=== PATIENT | female | born 1945 | race Caucasian/White ===

== ENCOUNTER 2021-07-22 19:52 | Emergency (ER) | payer MEDICARE ==
[~2021-07-22] VITALS: Ht 160 cm; Wt 94.4 kg
[2021-07-22 20:25] LABS: BASO # 0.1 x10^3/uL (0.0-0.2); BASO % 1 % (0-3); EOS # 0.2 x10^3/uL (0.0-0.7); EOS % 3 % (0-3); HEMATOCRIT 38.4 % (36.0-47.0); HEMOGLOBIN 12.9 g/dL (12.0-15.5); LYMPH # 1.8 x10^3/uL (1.0-4.8); LYMPH % 24 % (24-48); MEAN CORPUSCULAR HEMOGLOBIN 31 pg (25-35); MEAN CORPUSCULAR HGB CONC 34 g/dL (31-37); MEAN CORPUSCULAR VOLUME 92 fL (79-100); MONO # 0.6 x10^3/uL (0.0-1.1); MONO % 8 % (0-9); NEUT # 4.8 x10^3uL (1.8-7.7); NEUT % 64 % (31-73); PLATELET COUNT 300 x10^3/uL (140-400); RED BLOOD COUNT 4.18 x10^6/uL (3.50-5.40); RED CELL DISTRIBUTION WIDTH 13.6 % (11.5-14.5); WHITE BLOOD COUNT 7.5 x10^3/uL (4.0-11.0)
[2021-07-22] MEDS ORDERED: IOHEXOL 240 MG/ML 50ML VIAL. ONE (20:25)
[2021-07-22] MEDS ORDERED: ONDANSETRON PF 4 MG/2 ML VIAL. IVP ONE (20:30)
[2021-07-22] MEDS ORDERED: MORPHINE SULFATE 2 MG/ML DISP.SYRIN. IV ONE (20:30)
--- NOTE | 2021-07-22 20:30 | PHYS DOC ---
Past History Past Medical History: COPD, Hypertension (XOCHITL RUBI) Past Surgical History: Hip Replacement, Other Additional Past Surgical Histo: left knee, D&C. breast (XOCHITL RUBI) Alcohol Use: None (XOCHITL RUBI) Smoking: Non-smoker Alcohol Use: None Drug Use: None (CARLI CABELLO DO) General Adult EDM: Chief Complaint: ABDOMINAL PAIN HPI: HPI: Patient is a 76 year old female with a history of COPD and hypertension who presents with 1 day history of abdominal cramping. Patient states it started out as very mild pain, but after she woke up for a nap it had worsened significa ntly. Patient states the pain is diffuse and cramping in nature. The pain has changed in nature and location several times since onset. She states she does have a sensation that she needs to defecate, but is unable to do so. She reports associated nausea, but denies vomiting and diarrhea. She states she did pass a bowel movement this morning without straining "any more than normal." Patient has taken tramadol 2-3 times per day for approximately 1 month. She reports gastrin intestinal sensitivity to both oxycodone and hydrocodone, with reported abdominal pain, nausea and constipation. Her last dose of tramadol was at 0300. Patient denies chest pain, palpitations, shortness of breath, cough, dysuria, hematuria, and bloody stool. Patient has no other complaints at this time. (XOCHITL RUBI) Review of Systems: Review of Systems: Constitutional: Denies fever or chills HENT: Denies nasal congestion or sore throat Respiratory: Denies cough or shortness of breath Cardiovascular: See HPI GI: See HPI : See HPI Musculoskeletal: Denies back pain or joint pain Integument: Denies rash Neurologic: Denies headache, focal weakness or sensory changes Endocrine: Denies polyuria or polydipsia (XOCHITL RUBI) Current Medications: Current Meds: Current Medications Medications (Trade) Dose Ordered Sig/Suzy Start Time Stop Time Status Last Admin Dose Admin Morphine Sulfate (Morphine 2mg Syringe) 2 mg 1X ONCE 07/22/21 20:30 07/22/21 20:31 Ondansetron HCl (Zofran) 4 mg 1X ONCE 07/22/21 20:30 07/22/21 20:31 (XOCHITL RUBI) Allergies: Allergies: Allergies Coded Allergies Type Severity Reaction Last Updated Verified Penicillins Allergy Unknown 07/22/21 Yes (XOCHITL RUBI) Physical Exam: PE: Constitutional: Patient holding central abdomen and moaning in pain. Well dev eloped, well nourished, non-toxic appearance. HENT: Normocephalic, atraumatic, bilateral external ears normal, oropharynx moist, nose normal. Eyes: Conjunctiva normal, no discharge. Neck: Normal range of motion, no tenderness, supple, no stridor. Cardiovascular: Heart rate regular rhythm, no murmur. Lungs & Thorax: Bilateral breath sounds clear to auscultation. Abdomen: Normal active bowel sounds to lower abdomen, hypoactive bowel sounds upper abdomen, soft, diffuse tenderness with particular tenderness central-right lower, no McBurney's point tenderness, negative Rovsing sign, negative Person sign, no rebound tenderness, voluntary guarding, no masses. Skin: Warm, dry, no erythema, no rash. Back: No tenderness, no CVA tenderness. Extremities: No tenderness, no cyanosis, no clubbing, ROM intact, no edema. Neurologic: Alert and oriented x3, normal motor function, normal sensory function, no focal deficits noted. (XOCHITL RUBI) PE: Constitutional: Well developed, obese, uncomfortable, non-toxic appearance HENT: Normocephalic, atraumatic Eyes: Conjunctiva normal, no discharge Neck: Normal range of motion, supple Lungs & Thorax: No respiratory distress, equal chest rise and fall Abdomen: Soft, no tenderness, no guarding/rebound tenderness, distention noted Skin: Warm, dry, no erythema, no rash Back: No tenderness, right CVA tenderness Extremities: No tenderness, ROM intact, no edema Neurologic: Alert and oriented X 3, no focal deficits noted Psychologic: Affect anxious, judgment normal (CARLI CABELLO DO) Current Patient Data: Labs: Laboratory Tests Test 07/22/21 20:06 07/22/21 20:19 White Blood Count 7.5 x10^3/uL (4.0-11.0) Red Blood Count 4.18 x10^6/uL (3.50-5.40) Hemoglobin 12.9 g/dL (12.0-15.5) Hematocrit 38.4 % (36.0-47.0) Mean Corpuscular Volume 92 fL (79-100) Mean Corpuscular Hemoglobin 31 pg (25-35) Mean Corpuscular Hemoglobin Concent 34 g/dL (31-37) Red Cell Distribution Width 13.6 % (11.5-14.5) Platelet Count 300 x10^3/uL (140-400) Neutrophils (%) (Auto) 64 % (31-73) Lymphocytes (%) (Auto) 24 % (24-48) Monocytes (%) (Auto) 8 % (0-9) Eosinophils (%) (Auto) 3 % (0-3) Basophils (%) (Auto) 1 % (0-3) Neutrophils # (Auto) 4.8 x10^3uL (1.8-7.7) Lymphocytes # (Auto) 1.8 x10^3/uL (1.0-4.8) Monocytes # (Auto) 0.6 x10^3/uL (0.0-1.1) Eosinophils # (Auto) 0.2 x10^3/uL (0.0-0.7) Basophils # (Auto) 0.1 x10^3/uL (0.0-0.2) Lactic Acid Level 0.9 mmol/L (0.4-2.0) Vital Signs: Vital Signs Date Time Temp Pulse Resp B/P (MAP) Pulse Ox O2 Delivery O2 Flow Rate FiO2 07/22/21 19:58 97.8 67 16 188/90 (122) 100 Room Air (XOCHITL RUBI) Radiology/Procedures: Radiology/Procedures: [] (XOCHITL RUBI) Radiology/Procedures: PROCEDURE: CT ABD PELV W/ORAL&IV CONTRAST CT OF THE ABDOMEN AND PELVIS WITH IV CONTRAST. History: Reason: Abd pain, nausea, vomiting, constipation Comparison:None. Procedure: Contiguous axial images of the abdomen and pelvis were performed after the administration of 75 cc of Omni 300 IV contrast. Oral contrast: Yes. Findings: Small caliber loop of bowel medial to cecum is likely appendix. The gallbladder is well distended but otherwise appears normal. 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 Liver: Unremarkable Spleen: Unremarkable Pancreas: Unremarkable Adrenal Glands: Unremarkable Kidneys: There is moderate right hydronephrosis and right hydroureter and moderate right-sided perinephric edema . There is no mass or lymphadenopathy. There is no free air. There is no free fluid. The urinary bladder appears normal. Impression: 1. Moderate right hydronephrosis right hydroureter and perinephric edema. 2. 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 A stone in the distal right ureter cannot be excluded. End Impression PQRS Compliance Statement: One or more of the following individualized dose reduction techniques were utilized for this examination: 1. Automated exposure control 2. Adjustment of the mA and/or kV according to patient size 3. Use of iterative reconstruction technique Electronically signed by: Rodolfo Bishop III, MD (07/22/2021 9:57 PM) [facility] (CARLI CABELLO DO) Heart Score: C/O Chest Pain: No (XOCHITL RUBI) Course & Med Decision Making: Course & Med Decision Making Pertinent Labs and Imaging studies reviewed. (See chart for details) Workup consists of ct abd/pel with oral & iv contrast in addition to labs. Prior to oral contrast, morphine and zofran were administered in effort to make the process more tolerable. Patient continues to express pain on reevaluation, but states it has improved. Patient care was transferred to Dr. Cabello at 2100. (XOCHITL RUBI) Course & Med Decision Making 2100- Sign out received from Xochitl MILIAN for patient with right sided flank pain and abdominal pain with nausea and vomiting that waxes and wains in intensity. Labs reviewed. UA pending. WBC and lactic acid WNL. BUN/Creatinine stable. Patient seen and evaluated by myself. CT abd/pelvis pending. Findings with right sided hydronephrosis. Unable to fully see distal ureteral stone as patient with MARCO causing streak artifact. Presumed kidney stone based on findings. Flomax provided. Pain/nausea addressed. IVF hydration given. UA with signs of infection. Empiric antibiotic provided. Patient stable for discharge with outpatient follow-up with PCP/urologist. Discussed findings and plan with patient, who acknowledges understanding and agreement. (CARLI CABELLO DO) Kong Disclaimer: Kong Disclaimer: This electronic medical record was generated, in whole or in part, using a voice recognition dictation system. (XOCHITL RUBI) Departure Departure: Impression: Primary Impression: Hydronephrosis Qualified Codes: N13.30 - Unspecified hydronephrosis Additional Impression: UTI (urinary tract infection) Qualified Codes: N30.00 - Acute cystitis without hematuria Disposition: HOME / SELF CARE / HOMELESS Condition: STABLE Patient Instructions: Diet for Kidney Stones, Hydronephrosis, Kidney Stones, [id number], Urinary Tract Infection, [id number] Additional Instructions: Increase fluid hydration. Take Tramadol as needed for pain. May take each Tramadol with one (1) regular strength Tylenol 325mg. Use other prescriptions for nausea and to help pass presumed kidney stone. Take antibiotic as prescribed to completion of 7 day course. Follow closely with your doctor and/or Urologist. Contact your family physician and/or insurance for a referral. If symptoms worsen, please present to a facility that has urology coverage such as [facility], , or [facility]. Scripts Tamsulosin Hcl (FLOMAX) 0.4 Mg Cap.er.24h 1 CAP PO DAILY for Hydronephrosis for 7 Days, #7 CAP Prov: CARLI CABELLO DO 07/23/21 Ondansetron (ONDANSETRON ODT) 4 Mg Tab.rapdis 1 TAB PO PRN Q6-8HRS PRN for NAUSEA, #16 TAB Prov: CARLI CABELLO DO 07/23/21 Cephalexin (KEFLEX) 500 Mg Capsule 1 CAP PO TID for UTI for 7 Days, #21 CAP Prov: CARLI CABELLO DO 07/23/21 Attending Signature Attending Signature I have personally interviewed and examined the patient. All charts, labs, and imaging studies were reviewed. I agree with the PA/[employer]'s findings, exam, and plan. (CARLI CABELLO DO) XOCHITL RUBI Jul 22, 2021 20:30 CARLI CABELLO DO Jul 23, 2021 00:14
[2021-07-22 20:55] LABS: CALCIUM 9.1 mg/dL (8.5-10.1); CREATININE 0.7 mg/dL (0.6-1.0); GFR 81.1; POTASSIUM 3.8 mmol/L (3.5-5.1)
[2021-07-22 21:00] LABS: ALBUMIN 3.7 g/dL (3.4-5.0); TOTAL BILIRUBIN 0.4 mg/dL (0.2-1.0); TOTAL PROTEIN 7.4 g/dL (6.4-8.2)
[2021-07-22] MEDS ORDERED: IOHEXOL 300 MG/ML 75 ML VIAL. IV ONE (21:00)
[2021-07-22] MEDS ORDERED: CONTRAST GIVEN. MC PRN (21:00)
--- NOTE | 2021-07-22 21:59 | RAD ---
CT OF THE ABDOMEN AND PELVIS WITH IV CONTRAST. History: Reason: Abd pain, nausea, vomiting, constipation Comparison:None. Procedure: Contiguous axial images of the abdomen and pelvis were performed after the administration of 75 cc o f Omni 300 IV contrast. Oral contrast: Yes. Findings: Small caliber loop of bowel medial to cecum is likely appendix. The gallbladder is well distended but otherwise appears normal. The distal ureters and the posterior bladder are not seen due to beam Sutton artifact from prior tot al hip arthroplasty. Liver: Unremarkable Spleen: Unremarkable Pancreas: Unremarkable Adrenal Glands: Unremarkable Kidneys: There is moderate right hydronephrosis and right hydroureter and moderate right-sided perine phric edema . There is no mass or lymphadenopathy. There is no free air. There is no free fluid. The urinary bladder appears normal. Impression: 1. Moderate right hydronephrosis right hydroureter and perinephric edema. 2. 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 A stone in the distal right ureter cannot be excluded. End Impression PQRS Compliance Statement: One or more of the following individualized dose reduction techniques were utilized for this examinat ion: 1. Automated exposure control 2. Adjustment of the mA and/or kV according to patient size 3. Use of iterative reconstruction technique Electronically signed by: Rodolfo Bishop III, MD (07/22/2021 9:57 PM) [facility]
[2021-07-22] MEDS ORDERED: METOCLOPRAMIDE HCL 10 MG/2 ML VIAL. IVP ONE (22:45)
[2021-07-22] MEDS ORDERED: KETOROLAC 15 MG/ML VIAL. IVP ONE (22:45)
[2021-07-22] MEDS ORDERED: TAMSULOSIN 0.4 MG CAP.ER.24H. PO ONE (22:45)
[2021-07-22] MEDS ORDERED: IV NORMAL SALINE 500ML 500 ML IV ONE (22:45)
[2021-07-23] MEDS ORDERED: ONDANSETRON PF 4 MG/2 ML VIAL. ONE (01:33)
[2021-07-23] MEDS ORDERED: HYDROmorphone PF 1 MG/ML DISP.SYRIN IVP ONE (01:45)
[2021-07-23] MEDS ORDERED: ONDANSETRON PF 4 MG/2 ML VIAL. IVP ONE (01:45)
[2021-07-23 02:26] LABS: BACTERIA,URINE FEW /HPF (0-FEW); BILIRUBIN,URINE NEG (NEG); CLARITY,URINE HAZY; COLOR,URINE YELLOW; GLUCOSE,URINE NEG (NEG); NITRITE,URINE POS (NEG); RBC,URINE 0 /HPF (0-2); SQUAMOUS EPITHELIAL CELL,UR MOD /LPF; UROBILINOGEN,URINE 0.2 mg/dL (0.2 mg/dL)
[2021-07-23] MEDS ORDERED: IV NORMAL SALINE 50ML 50 ML ONE (03:04)
[2021-07-23] MEDS ORDERED: cefTRIAXone SODIUM 1 GM VIAL ONE (03:04)
[2021-07-23] MEDS ORDERED: TAMS0.4C97 PO (03:19)
[2021-07-23] MEDS ORDERED: CEPH500C PO (03:19)
[2021-07-23] MEDS ORDERED: ONDA4TAB12 PO (03:19)
[2021-07-23 04:50] VITALS: BP 136/68
== END 2021-07-23 04:53 | disposition home or self-care (01) ==
LOC: ER 19:52
DX: N13.30 Unspecified hydronephrosis (principal); N30.00 Acute cystitis without hematuria; J44.9 Chronic obstructive pulmonary disease, unspecified; I10 Essential (primary) hypertension; Z88.0 Allergy status to penicillin
CPT/HCPCS: 36415; 74177; 80053; 81001; 83605; 85025; 96361; 96365; 96375; 96376; 99285; J0696; J1170; J1885; J2270; J2405; J2765; J3010; J7040; Q9967